=== PATIENT | female | born 1945 | race Caucasian/White ===

== ENCOUNTER 2020-07-14 15:52 | Inpatient (IN) | payer OTHER, MEDICARE ==
[~2020-07-14] VITALS: Ht 165.1 cm; Wt 46.3 kg
[2020-07-14 16:24] VITALS: Ht 165.1 cm; Wt 46.3 kg
[2020-07-14 18:02] LABS: BASOPHIL % 0.3 % (0.2-1.3); PLATELET COUNT 205 x10^3mcL (179-408)
[2020-07-14 18:07] LABS: RED CELL DISTRIBUTION WIDTH 14.6 % (12.3-17.7)
[2020-07-14 18:09] LABS: rbc morphology (normal/abnorm) NORMAL (NORMAL)
[2020-07-14 18:11] LABS: ALKALINE PHOSPHATASE 103 U/L (46-116); ALT/SGPT 28 U/L (14-59); AST/SGOT 28 U/L (15-37); BILIRUBIN TOTAL 0.5 mg/dL (0.20-1.00); CARBON DIOXIDE 22.8 mmol/L (21-32); CHLORIDE SERUM 100 mmol/L (98-107); CREATININE SERUM 1.2 mg/dL (0.6-1.0); GLUCOSE SERUM 125 mg/dL (74-106); LIPASE 60 IU/L (73-393); POTASSIUM SERUM 4.6 mmol/L (3.5-5.1); SODIUM SERUM 136 mmol/L (136-145); TOTAL PROTEIN, SERUM 6.7 g/dL (6.4-8.2)
[2020-07-14 18:13] LABS: ALBUMIN 3.2 g/dL (3.4-5.0)
[2020-07-14 19:02] LABS: CALCIUM 9.6 mg/dL (8.5-10.1)
[2020-07-14 21:15] LABS: FREE T4 1.8 ng/dL (0.76-1.46); FREE THYROXINE INDEX 4.5 ug/dL (1.4-4.5); MAGNESIUM 2.2 mg/dL (1.8-2.4); PHOSPHOROUS 3.6 mg/dL (2.5-4.9); T4(THYROXINE) 11.3 ug/dL (4.7-13.3)
[2020-07-14 21:17] LABS: T3 TOTAL 0.77 ng/mL
[2020-07-14 21:42] LABS: CHOLESTEROL/HDL RATIO 1.8
[2020-07-15] MEDS ORDERED: FOLIC ACID0.8 MG PO (06:56)
[2020-07-15] MEDS ORDERED: XARELTO10 M1 PO (06:56)
[2020-07-15] MEDS ORDERED: METOPROLOL SUCC25 M2 PO (06:56)
[2020-07-15] MEDS ORDERED: AMIODARONE HCL100 MG PO (06:56)
[2020-07-15] MEDS ORDERED: COLACE100 MG PO (06:57)
[2020-07-15] MEDS ORDERED: UREA142 G1 PO (06:57)
[2020-07-15] MEDS ORDERED: D-10001 TAB (06:57)
[2020-07-15] MEDS ORDERED: TREXALL5 MG (06:57)
[2020-07-15] MEDS ORDERED: PROLIA60 MG/ML (06:58)
[2020-07-15 07:09] LABS: BASOPHIL % 0.1 % (0.2-1.3); PLATELET COUNT 210 x10^3mcL (179-408)
[2020-07-15 07:47] LABS: CALCIUM 8.4 mg/dL (8.5-10.1); CARBON DIOXIDE 24.7 mmol/L (21-32); CHLORIDE SERUM 105 mmol/L (98-107); CREATININE SERUM 1.6 mg/dL (0.6-1.0); GLUCOSE SERUM 91 mg/dL (74-106); POTASSIUM SERUM 4.5 mmol/L (3.5-5.1); SODIUM SERUM 139 mmol/L (136-145)
[2020-07-15 12:29] LABS: RED CELL DISTRIBUTION WIDTH 14.6 % (12.3-17.7)
[2020-07-15 12:44] LABS: rbc morphology (normal/abnorm) NORMAL (NORMAL)
[2020-07-15 22:05] VITALS: BP 90/50
[2020-07-15 22:30] VITALS: BP 79/40
[2020-07-16 02:30] VITALS: BP 81/42
[2020-07-16 08:04] LABS: BASOPHIL % 0.1 % (0.2-1.3)
[2020-07-16 08:21] LABS: CALCIUM 6.9 mg/dL (8.5-10.1); CARBON DIOXIDE 18.8 mmol/L (21-32); CHLORIDE SERUM 110 mmol/L (98-107); CREATININE SERUM 1.4 mg/dL (0.6-1.0); GLUCOSE SERUM 85 mg/dL (74-106); MAGNESIUM 1.6 mg/dL (1.8-2.4); PHOSPHOROUS 2.8 mg/dL (2.5-4.9); POTASSIUM SERUM 3.7 mmol/L (3.5-5.1); SODIUM SERUM 141 mmol/L (136-145)
[2020-07-16 09:04] LABS: PLATELET COUNT 128 x10^3mcL (179-408)
[2020-07-16 09:09] LABS: rbc morphology (normal/abnorm) NORMAL (NORMAL)
[2020-07-16 15:19] LABS: rbc morphology (normal/abnorm) ABNORMAL (NORMAL)
[2020-07-16 20:40] VITALS: BP 106/55
[2020-07-16 21:01] VITALS: BP 107/48
[2020-07-16 23:54] VITALS: BP 94/63
[2020-07-17] VITALS (7 sets, daily range): BP systolic 106–118; BP diastolic 51–62
[2020-07-17 08:32] LABS: CALCIUM 7.1 mg/dL (8.5-10.1); CARBON DIOXIDE 20.9 mmol/L (21-32); CHLORIDE SERUM 115 mmol/L (98-107); CREATININE SERUM 0.8 mg/dL (0.6-1.0); GLUCOSE SERUM 93 mg/dL (74-106); MAGNESIUM 2.6 mg/dL (1.8-2.4); POTASSIUM SERUM 3.7 mmol/L (3.5-5.1); SODIUM SERUM 147 mmol/L (136-145)
[2020-07-17 08:38] LABS: BASOPHIL % 0.1 % (0.2-1.3); PLATELET COUNT 153 x10^3mcL (179-408)
[2020-07-17 09:37] LABS: RED CELL DISTRIBUTION WIDTH 19.6 % (12.3-17.7)
[2020-07-17 10:50] LABS: rbc morphology (normal/abnorm) NORMAL (NORMAL)
[2020-07-18 05:11] VITALS: BP 117/59
[2020-07-18 07:47] LABS: BASOPHIL % 0.3 % (0.2-1.3); PLATELET COUNT 181 x10^3mcL (179-408)
[2020-07-18 07:55] LABS: CALCIUM 7.1 mg/dL (8.5-10.1); CARBON DIOXIDE 23.3 mmol/L (21-32); CHLORIDE SERUM 117 mmol/L (98-107); CREATININE SERUM 0.6 mg/dL (0.6-1.0); GLUCOSE SERUM 132 mg/dL (74-106); MAGNESIUM 2.4 mg/dL (1.8-2.4); PHOSPHOROUS 1.2 mg/dL (2.5-4.9); POTASSIUM SERUM 4.1 mmol/L (3.5-5.1); SODIUM SERUM 148 mmol/L (136-145)
[2020-07-18 08:49] VITALS: BP 124/72
[2020-07-18 09:12] LABS: RED CELL DISTRIBUTION WIDTH 19.4 % (12.3-17.7)
[2020-07-18 09:13] LABS: rbc morphology (normal/abnorm) NORMAL (NORMAL)
[2020-07-18 12:11] VITALS: BP 139/64
[2020-07-18 12:30] VITALS: BP 144/97
[2020-07-18 16:34] VITALS: BP 136/70
[2020-07-18 20:50] VITALS: BP 143/68
[2020-07-19 05:20] VITALS: BP 107/54
[2020-07-19 07:44] LABS: BASOPHIL % 0.4 % (0.2-1.3); PLATELET COUNT 179 x10^3mcL (179-408)
[2020-07-19 07:52] LABS: CALCIUM 7.3 mg/dL (8.5-10.1); CARBON DIOXIDE 24.6 mmol/L (21-32); CHLORIDE SERUM 113 mmol/L (98-107); CREATININE SERUM 0.5 mg/dL (0.6-1.0); GLUCOSE SERUM 97 mg/dL (74-106); MAGNESIUM 2.1 mg/dL (1.8-2.4); POTASSIUM SERUM 4.7 mmol/L (3.5-5.1); SODIUM SERUM 144 mmol/L (136-145)
[2020-07-19 07:55] LABS: RED CELL DISTRIBUTION WIDTH 19.6 % (12.3-17.7)
[2020-07-19 08:42] VITALS: BP 123/61
[2020-07-19 12:25] VITALS: BP 142/68
[2020-07-19 13:31] LABS: rbc morphology (normal/abnorm) NORMAL (NORMAL)
[2020-07-19 16:20] VITALS: BP 129/75
[2020-07-19 21:20] VITALS: BP 141/73
[2020-07-20 06:10] VITALS: BP 111/67
[2020-07-20 08:54] LABS: BASOPHIL % 0.3 % (0.2-1.3); PLATELET COUNT 213 x10^3mcL (179-408)
[2020-07-20 09:01] VITALS: BP 122/72
[2020-07-20 09:28] LABS: CALCIUM 7.7 mg/dL (8.5-10.1); CARBON DIOXIDE 21.5 mmol/L (21-32); CHLORIDE SERUM 114 mmol/L (98-107); CREATININE SERUM 0.5 mg/dL (0.6-1.0); GLUCOSE SERUM 98 mg/dL (74-106); MAGNESIUM 1.9 mg/dL (1.8-2.4); PHOSPHOROUS 1.4 mg/dL (2.5-4.9); POTASSIUM SERUM 4.6 mmol/L (3.5-5.1); SODIUM SERUM 143 mmol/L (136-145)
[2020-07-20 10:25] LABS: RED CELL DISTRIBUTION WIDTH 18.3 % (12.3-17.7)
[2020-07-20 10:32] LABS: rbc morphology (normal/abnorm) NORMAL (NORMAL)
[2020-07-20 13:26] VITALS: BP 106/64
[2020-07-20 17:20] VITALS: BP 143/72
== END 2020-07-20 19:15 | disposition home or self-care (01) | DRG 853 ==
LOC: EDBD 15:52 → ED 15:52 → IC 21:25 → DU 07-16 20:57
PROVIDERS: Emergency Medicine; Internal Medicine; Surgery; ADMIT Family Medicine; ATTEND Family Medicine
PROC: 5A1935Z Respiratory Ventilation, Less than 24 Consecutive Hours (ICD-10-PCS; 2020-07-15)
PROC: 0BH17EZ Insertion of Endotracheal Airway into Trachea, Via Natural or Artificial Opening (ICD-10-PCS; 2020-07-15)
PROC: 0DTN0ZZ Resection of Sigmoid Colon, Open Approach (ICD-10-PCS; principal; 2020-07-15 07:30)
PROC: 30233N1 Transfusion of Nonautologous Red Blood Cells into Peripheral Vein, Percutaneous Approach (ICD-10-PCS; 2020-07-16)
DX: A41.9 Sepsis, unspecified organism (principal); R65.21 Severe sepsis with septic shock; U07.1 COVID-19; N17.0 Acute kidney failure with tubular necrosis; K65.9 Peritonitis, unspecified; E44.1 Mild protein-calorie malnutrition; Z68.1 Body mass index [BMI] 19.9 or less, adult; D62 Acute posthemorrhagic anemia; K46.0 Unspecified abdominal hernia with obstruction, without gangrene; K52.9 Noninfective gastroenteritis and colitis, unspecified; M06.9 Rheumatoid arthritis, unspecified; I48.0 Paroxysmal atrial fibrillation; E83.42 Hypomagnesemia; E87.6 Hypokalemia
CPT/HCPCS: 83880; 84439; 85378; 97112-GP; G0378; J0131; J0282; J0690; J0696; J1160; J1170; J1644; J2270; J2405; J2543; J3010; J3480; J3490; J7030; J7040; J7060; P9016; Q9967; U0003